=== PATIENT | male | born 1980 | race Caucasian/White ===

== ENCOUNTER 2017-09-12 05:47 | Emergency (ER) | payer OTHER ==
[~2017-09-12] VITALS: Ht 193 cm; Wt 107.2 kg
[2017-09-12 06:25] VITALS: BP 155/97
== END 2017-09-12 06:25 | disposition home or self-care (01) ==
LOC: EME 05:47
DX: S60.512A Abrasion of left hand, initial encounter (principal); S60.417A Abrasion of left little finger, initial encounter; S60.222A Contusion of left hand, initial encounter; S00.83XA Contusion of other part of head, initial encounter; W00.0XXA Fall on same level due to ice and snow, initial encounter; Y92.481 Parking lot as the place of occurrence of the external cause; Y99.0 Civilian activity done for income or pay
CPT/HCPCS: 99281; 99283